=== PATIENT | male | born 1945 | race Caucasian/White ===

== ENCOUNTER 2019-12-28 07:01 | Day surgery (SDC) | payer OTHER, SELFPAY ==
[~2019-12-28] VITALS: Ht 182.9 cm; Wt 97.5 kg
[2019-12-28] MEDS ORDERED: fentaNYL citrate 0.05 MG/ML VIAL ONE (09:02)
[2019-12-28] MEDS ORDERED: LIDOCAINE 2% 100 MG/5 ML UJET TP ONE (09:02)
[2019-12-28] MEDS ORDERED: fentaNYL citrate 0.05 MG/ML VIAL IVP ONE (10:15)
== END 2019-12-28 10:25 | disposition home or self-care (01) ==
LOC: MDS 07:01 → MMU 07:01 → MDS 10:25
PROVIDERS: ATTEND Internal Medicine Gastroenterology
DX: K92.1 Melena (principal); K63.5 Polyp of colon; K62.1 Rectal polyp; K57.30 Diverticulosis of large intestine without perforation or abscess without bleeding; I10 Essential (primary) hypertension; I48.91 Unspecified atrial fibrillation; Z86.010 Personal history of colon polyps; Z20.828 Contact with and (suspected) exposure to other viral communicable diseases
CPT/HCPCS: 45380; 45385; J3010; U0003